=== PATIENT | female | born 1955 | race Caucasian/White ===

== ENCOUNTER 2016-11-02 08:58 | Emergency (ER) | payer OTHER ==
[2016-11-02] MEDS ORDERED: 0.9 % SODIUM CHLORIDE 1000ML 1,000 ML IV PRN (09:29)
[2016-11-02] MEDS ORDERED: KETOROLAC 30 MG/ML VIAL IVP ONE (09:29)
--- NOTE | 2016-11-02 09:34 | Emergency Department Record ---
History of Present Illness - General Chief complaint: Flank Pain Stated complaint: FLANK PAIN Time Seen by Provider: 11/02/16 09:23 Source: Patient, RN notes reviewed Mode of Arrival: Ambulatory - History of Present Illness Initial comments: right flank pain and seen at [facility] with blood in urine, history of kidney stones. pain on and off for 5 days. Patient states pain in the right posterior thoracic back area . worse with rotating of shoulders. patient had a cystoscope of bladder by Dr. Saha about one year ago which was negative Onset/Timin -: Days(s) Severity scale (1-10): 7 Quality: Dull Consistency: Constant Patient : No Associated Symptoms: Denies other symptoms - Related Data Previous Rx's Medication Instructions Recorded Cyclobenzaprine HCl [Flexeril] 10 mg PO TID #30 tablet 11/02/16 Tramadol HCl [Ultram] 50 mg PO Q6H #30 tab 11/02/16 Allergies Allergy/AdvReac Type Severity Reaction Status Date / Time codeine Allergy ITCHING Unverified 02/25/15 14:29 Penicillins Allergy RASH Unverified 02/25/15 14:29 Travel Screening - Travel/Exposure Within Last 30 Days Have you traveled within the last 30 days?: No - Travel/Exposure Within Last Year Have you traveled outside the [place] in the last year?: No - Additonal Travel Details Have you been exposed to anyone with a communicable illness?: No - Travel Symptoms Symptom Screening: None Review of Systems Reviewed: No additional complaints except as noted below Constitutional: Reports: As per HPI. Denies: Chills, Fever, Malaise, Night sweats, Weakness, Weight change Eyes: Reports: As per HPI. Denies: Eye discharge, Eye pain, Photophobia, Vision change ENT: Reports: As per HPI. Denies: Congestion, Dental pain, Ear pain, Epistaxis , Hearing loss, Throat pain Respiratory: Reports: As per HPI. Denies: Cough, Dyspnea, Hemoptysis, Stridor, Wheezes Cardiovascular: Reports: As per HPI. Denies: Arrhythmia, Chest pain, Dyspnea on exertion, Edema, Murmurs, Orthopnea, Palpitations, Paroxysmal nocturnal dyspnea, Rheumatic Fever, Syncope Endocrine: Reports: As per HPI. Denies: Fatigue, Heat or cold intolerance, Polydipsia, Polyuria Gastrointestinal: Reports: As per HPI. Denies: Abdominal pain, Constipation, Diarrhea, Hematemesis, Hematochezia, Melena, Nausea, Vomiting Genitourinary: Reports: As per HPI. Denies: Abnormal menses, Discharge, Dyspareunia, Dysuria, Frequency, Hematuria, Incontinence, Retention, Urgency Musculoskeletal: Reports: As per HPI, Back pain. Denies: Arthralgia, Gout, Joint swelling, Myalgia, Neck pain Skin: Reports: As per HPI. Denies: Bruising, Change in color, Change in hair/ nails, Lesions, Pruritus, Rash Neurological: Reports: As per HPI. Denies: Abnormal gait, Confusion, Headache, Numbness, Paresthesias, Seizure, Tingling, Tremors, Vertigo, Weakness Psychiatric: Reports: As per HPI. Denies: Anxiety, Auditory hallucinations, Depression, Homicidal thoughts, Suicidal thoughts, Visual hallucinations Hematological/Lymphatic: Reports: As per HPI. Denies: Anemia, Blood Clots, Easy bleeding, Easy bruising, Swollen glands Past Medical History - SOCIAL HISTORY Smoking Status: Never smoker Alcohol Use: None Drug Use: None - RESPIRATORY Hx Respiratory Disorders: No - CARDIOVASCULAR Hx Cardio Disorders: Yes Hx Hypertension: Yes - NEURO Hx Neuro Disorders: No - GI Hx GI Disorders: No - Hx Genitourinary Disorders: Yes Hx Kidney Stones: Yes - ENDOCRINE Hx Endocrine Disorders: No Hx Diabetes: No Hx Thyroid Disease: No - MUSCULOSKELETAL Hx Musculoskeletal Disorders: No - PSYCH Hx Psych Problems: No - HEMATOLOGY/ONCOLOGY Hx Hematology/Oncology Disorders: No Family Medical History Any Significant Family History?: No Hx Cancer: Father Hx HTN: Mother Physical Exam - General General Appearance: Alert, Oriented x3, Cooperative, Mild distress - Head Head exam: Normal inspection - Eye Eye exam: Normal appearance, PERRL Pupils: Normal accommodation - ENT ENT exam: Normal exam, Mucous membranes moist, Normal external ear exam, Normal orophraynx, TM's normal bilaterally Ear exam: Normal external inspection. negative: External canal tenderness Nasal Exam: Normal inspection. negative: Discharge, Sinus tenderness Mouth exam: Normal external inspection, Tongue normal Teeth exam: Normal inspection. negative: Dental caries Throat exam: Normal inspection. negative: Tonsillar erythema, Tonsillar exudate - Neck Neck exam: Normal inspection, Full ROM. negative: Tenderness - Respiratory Respiratory exam: Normal lung sounds bilaterally. negative: Respiratory distress - Cardiovascular Cardiovascular Exam: Regular rate, Normal rhythm, Normal heart sounds - GI/Abdominal GI/Abdominal exam: Soft, Normal bowel sounds. negative: Tenderness - Rectal Rectal exam: Deferred - exam: Deferred - Extremities Extremities exam: Normal inspection, Full ROM, Normal capillary refill. negative: Tenderness - Back Back exam: Reports: Normal inspection, Full ROM. Denies: Muscle spasm, Rash noted, Tenderness - Neurological Neurological exam: Alert, Normal gait, Oriented X3, Reflexes normal - Psychiatric Psychiatric exam: Normal affect, Normal mood - Skin Skin exam: Dry, Intact, Normal color, Warm Course Vital Signs 11/02/16 09:00 Temperature 98.1 F Pulse Rate 97 H Respiratory 16 Rate Blood Pressure 133/114 Pulse Ox 96 Medical Decision Making - Data Complexity MDM Data: Labs Ordered and/or Reviewed, X-Ray Ordered and/or Reviewed (CT scan of abd negative) - Lab Data Result diagrams: 11/02/16 09:20 11/02/16 09:20 Disposition Clinical Impression: Hematuria, microscopic Thoracic myofascial strain Qualifiers: Encounter type: initial encounter Qualified Code(s): S29.019A - Strain of muscle and tendon of unspecified wall of thorax, initial encounter Disposition: Home, Self-Care Condition: (1) Good Instructions: Thoracic Back Strain (ED) Additional Instructions: heat to back four times a day Prescriptions: Cyclobenzaprine HCl [Flexeril] 10 mg PO TID #30 tablet Tramadol HCl [Ultram] 50 mg PO Q6H #30 tab Forms: Patient Portal Access Time of Disposition: 10:58 Quality - Quality Measures Quality Measures: N/A - Blood Pressure Screening Does Patient Have Any of the Following: No Blood Pressure Classification: Hypertensive Reading Systolic Measurement: 133 Diastolic Measurement: 114 Screening for High Blood Pressure: < First Hypertensive BP, F/U Documented > [ [id number]] First Hypertensive Follow-up Interventions: Referral to alternative/primary care provider.
[2016-11-02 09:50] LABS: BASO % 1.1 % (0-6); EOS % 3.2 % (0-6); GRAN % 58.2 % (47-80); HEMATOCRIT 43.2 % (35.0-47.0); HEMOGLOBIN 14.8 gm/dl (11.6-16.0); LYMPH % 27.8 % (16-45); MEAN CELL VOLUME 91.1 fl (81-97); MEAN CORPUSCULAR HEMOGLOBIN 31.2 pg (27-33); MEAN CORPUSCULAR HGB CONC 34.3 g/dl (32-36); MEAN PLATELET VOLUME 10.6 fl (7.4-10.4); MONO % 9.7 % (0-9); PLATELET COUNT 351 K/uL (130-400); RED BLOOD COUNT 4.74 M/uL (3.80-5.40); RED CELL DISTRIBUTION WIDTH 12.6 % (11.5-14.5); WHITE BLOOD COUNT W/O DIFF 4.8 K/uL (4.2-12.2)
[2016-11-02 10:04] LABS: BLOOD UREA NITROGEN 26.8 mg/dL (17.4-49.2); CREATININE 0.8 mg/dL (0.5-0.9); EST GLOMERULAR FILTRATION RATE > 60 mL/min; GLUCOSE,RANDOM 104 mg/dL (74-109)
[2016-11-02 10:17] LABS: URINE APPEARANCE CLEAR; URINE BILIRUBIN NEGATIVE (NEGATIVE); URINE BLOOD TRACE-I (NEGATIVE); URINE COLOR YELLOW; URINE GLUCOSE (UA) NEGATIVE (NEGATIVE); URINE KETONE NEGATIVE (NEGATIVE); URINE LEUKOCYTE ESTERASE NEGATIVE (NEGATIVE); URINE NITRITE NEGATIVE (NEGATIVE); URINE PROTEIN NEGATIVE (NEGATIVE); URINE UROBILINOGEN 0.2 E.U./dL (0.20 - 1.00)
[2016-11-02 10:27] LABS: URINE EPITHELIAL CELLS 0 - 2 (FEW); URINE WBC 0 - 2 (0-2/hpf)
[2016-11-02] MEDS ORDERED: HYDROMORPHONE HCL 1MG/ML **SYRINGE IVP ONE (10:43)
[2016-11-02] MEDS ORDERED: ONDANSETRON HCL IV 4 MG/2 ML VIAL IVP ONE (10:43)
--- NOTE | 2016-11-03 06:25 | CT SCAN REPORT ---
DATE: 11/02/2016. EXAM: CT OF THE ABDOMEN AND PELVIS WITHOUT CONTRAST. HISTORY: Right flank pain. TECHNIQUE: Sequential axial images were obtained from the diaphragms through the ischiorectal fossa without intravenous or oral contrast administration. FINDINGS: The visualized lung bases appear normal. Heart size is upper limits of normal. There is fatty infiltration of the liver. There is a focal, subcentimeter, low-density lesion likely dental sales representative of a cyst or hemangioma. No gallstones are appreciated. The pancreas and spleen appear normal. The adrenal glands appear normal. There is a duplex collecting system on the right. No CT findings suggestive of obstructive uropathy. The urinary bladder appears normal. The small bowel appears normal. The appendix is not definitively identified. There are no CT findings suggestive of acute appendicitis. The colon appears normal. The uterus is retroverted. No adnexal lesions are appreciated. There is severe degenerative change at L3-4. IMPRESSION: 1. NO CT FINDINGS SUGGESTIVE OF OBSTRUCTIVE UROPATHY. THERE IS A DUPLEX COLLECTING SYSTEM ON THE RIGHT. 2. FATTY INFILTRATION OF THE LIVER. 3. THE APPENDIX IS NOT DEFINITIVELY IDENTIFIED. NO CT FINDINGS SUGGESTIVE OF ACUTE APPENDICITIS. 4. RETROVERTED UTERUS. JOB NUMBER: [id number] [facility]
== END 2016-11-02 11:16 | disposition home or self-care (01) ==
LOC: ER 08:58
DX: S29.019A Strain of muscle and tendon of unspecified wall of thorax, initial encounter (principal); R31.29 Other microscopic hematuria; R10.31 Right lower quadrant pain; X58.XXXA Exposure to other specified factors, initial encounter; Z87.442 Personal history of urinary calculi
CPT/HCPCS: 99284 ×2; 96374; 85025; 80048; 81001; 74176; J1885

== ENCOUNTER 2016-11-07 17:24 | Emergency (ER) | payer OTHER ==
[2016-11-07 18:15] LABS: URINE BILIRUBIN NEGATIVE (NEGATIVE); URINE BLOOD LARGE (NEGATIVE); URINE GLUCOSE (UA) NEGATIVE (NEGATIVE); URINE KETONE NEGATIVE (NEGATIVE); URINE LEUKOCYTE ESTERASE TRACE (NEGATIVE)
--- NOTE | 2016-11-07 18:19 | Emergency Department Record ---
History of Present Illness - General Chief Complaint: Back Pain/Injury Stated Complaint: LOWER BACK SPASM,VAGINAL BLEEDING Time Seen by Provider: 11/07/16 18:11 Source: Patient Mode of Arrival: Ambulatory Limitations: No limitations - History of Present Illness Initial Comments: 60 yo female presents to ED with a CC of continue low back pain symptoms following a recent back strain, but also the development of mild vaginal spotting today. Patient reports that she was evaluated 5 days ago for her back pain symptoms, underwent CT imaging to exclude calculi, and has been improving at home with Tramadol and Flexeril. Patient is more concerned about mild vaginal spotting that began this afternoon, reports amount of bleeding is small , and denies abdominal pain/pelvic pain or the use of anticoagulation medications. MD Complaint: Other Onset/Timin -: Days(s) Similar Symptoms Previously: No Place: Home Radiation: None Severity: Mild Severity scale (1-10): 3 Consistency: Intermittent Improves With: None Worsens With: None Context: Unknown Associated Symptoms: Denies other symptoms - Related Data Previous Rx's Medication Instructions Recorded Cyclobenzaprine HCl [Flexeril] 10 mg PO TID #30 tablet 11/02/16 Tramadol HCl [Ultram] 50 mg PO Q6H #30 tab 11/02/16 Allergies Allergy/AdvReac Type Severity Reaction Status Date / Time codeine Allergy ITCHING Verified 11/07/16 17:34 Penicillins Allergy RASH Verified 11/07/16 17:34 Travel Screening - Travel/Exposure Within Last 30 Days Have you traveled within the last 30 days?: No Review of Systems Constitutional: Denies: Chills, Fever, Malaise, Night sweats Eyes: Denies: Eye discharge, Eye pain ENT: Denies: Congestion, Ear pain, Epistaxis Respiratory: Denies: Cough, Dyspnea Cardiovascular: Denies: Chest pain, Dyspnea on exertion, Palpitations, Paroxysmal nocturnal dyspnea Endocrine: Denies: Fatigue, Heat or cold intolerance Gastrointestinal: Denies: Abdominal pain, Nausea, Vomiting Genitourinary: Reports: Other (vaginal spotting). Denies: Frequency, Hematuria , Incontinence, Retention Musculoskeletal: Reports: Back pain (improving per patient). Denies: Arthralgia , Gout, Joint swelling Skin: Denies: Bruising, Change in color Neurological: Denies: Abnormal gait, Confusion, Headache, Numbness, Tingling Psychiatric: Denies: Anxiety Hematological/Lymphatic: Denies: Anemia, Blood Clots Past Medical History - SOCIAL HISTORY Smoking Status: Never smoker Alcohol Use: None Drug Use: None - RESPIRATORY Hx Respiratory Disorders: No - CARDIOVASCULAR Hx Cardio Disorders: Yes Hx Hypertension: Yes - NEURO Hx Neuro Disorders: No - GI Hx GI Disorders: No - Hx Genitourinary Disorders: Yes Hx Kidney Stones: Yes - ENDOCRINE Hx Endocrine Disorders: No Hx Diabetes: No Hx Thyroid Disease: No - MUSCULOSKELETAL Hx Musculoskeletal Disorders: No - PSYCH Hx Psych Problems: No - HEMATOLOGY/ONCOLOGY Hx Hematology/Oncology Disorders: No Family Medical History Any Significant Family History?: Yes Hx Cancer: Father Hx HTN: Mother Physical Exam - General General Appearance: Alert, Oriented x3, Cooperative, No acute distress Limitations: No limitations - Head Head exam: Atraumatic, Normocephalic, Normal inspection Head exam detail: negative: Abrasion, Contusion, Smart's sign, General tenderness, Hematoma, Laceration - Eye Eye exam: Normal appearance. negative: Conjunctival injection, Periorbital swelling, Periorbital tenderness, Scleral icterus - ENT Ear exam: negative: Auricular hematoma, Auricular trauma Nasal Exam: negative: Active bleeding, Discharge, Dried blood, Foreign body Mouth exam: negative: Drooling, Laceration, Tongue elevation - Neck Neck exam: Normal inspection. negative: Meningismus, Tenderness - Respiratory Respiratory exam: Normal lung sounds bilaterally. negative: Respiratory distress, Rhonchi, Stridor, Wheezes - Cardiovascular Cardiovascular Exam: Regular rate, Normal rhythm, Normal heart sounds - GI/Abdominal GI/Abdominal exam: Soft. negative: Distended, Rebound, Rigid, Tenderness - Rectal Rectal exam: Deferred - exam: Deferred - Extremities Extremities exam: Normal inspection. negative: Calf tenderness, Pedal edema, Tenderness - Back Back exam: Reports: Paraspinal tenderness. Denies: CVA tenderness (R), CVA tenderness (L) - Neurological Neurological exam: Alert, Normal gait, Oriented X3 - Psychiatric Psychiatric exam: Normal affect, Normal mood - Skin Skin exam: Normal color. negative: Abrasion Type of lesion: negative: abrasion Course Vital Signs 11/07/16 17:34 Temperature 97.7 F Pulse Rate 105 H Respiratory 20 Rate Blood Pressure 147/102 Pulse Ox 98 - Reevaluation(s) Reevaluation #1: 11/07/16 18:16 Previous labs reviewed 11/02/16, Hgb 14.8. Patient reports that her symptoms are mild, and the patient is not currently taking anticoagulation medications. Patient's symptoms are likely the result of a hormonal imbalance, and the patient appears stable for discharge with instructions for follow-up to exclude potential uterine cancer. Patient agrees with the plan of care, and appears stable for discharge at this time. 11/07/16 18:19 Reevaluation #2: 11/07/16 18:37 UA reviewed and appears bloody without evidence for infection. Patient appears stable for discharge at this time. Disposition Disposition: Discharge Clinical Impression: Postmenopausal bleeding Disposition: Home, Self-Care Condition: (2) Stable Instructions: Dysfunctional Uterine Bleeding (ED) Additional Instructions: Return to ED if your symptoms worsen or if you have any concerns. Follow-up with Dr. Lowry in 1-2 weeks for further evaluation of your post- menopausal bleeding symptoms. Forms: Patient Portal Access Time of Disposition: 18:20 Quality - Quality Measures Quality Measures: N/A - Blood Pressure Screening Does Patient Have Any of the Following: Active Dx of HTN Blood Pressure Classification: Hypertensive Reading Systolic Measurement: 140 Diastolic Measurement: 71 Screening for High Blood Pressure: Patient Exclusion, Hx of HTN [[id number]]
[2016-11-07 18:20] LABS: URINE APPEARANCE CLOUDY; URINE COLOR RED
[2016-11-07 18:33] LABS: URINE NITRITE POSITIVE (NEGATIVE); URINE RBC >50 (NONE SEEN)
[2016-11-07 18:34] LABS: URINE SQUAMOUS EPITHELIAL CELL 0 - 2 /hpf; URINE WBC 0 - 2 (0-2/hpf)
[2016-11-07 18:35] LABS: URINE BACTERIA FEW
== END 2016-11-07 18:47 | disposition home or self-care (01) ==
LOC: ER 17:24
DX: N95.1 Menopausal and female climacteric states (principal); M54.5 Low back pain; I10 Essential (primary) hypertension
CPT/HCPCS: 81001; 99282